=== PATIENT | female | born 1975 | race African-American/Black ===

== ENCOUNTER → 2020-06-02 08:13 | Outpatient (BNVA) | payer OTHER, SELFPAY | PROVIDERS: PCP Nurse Practitioner; Referring Provider Nurse Practitioner; Visit Provider Dietitian, Registered | DX: Z76.89 Persons encountering health services in other specified circumstances (principal) ==

== ENCOUNTER → 2021-01-24 14:17 | Outpatient (BNVA) | payer OTHER, SELFPAY | PROVIDERS: PCP Nurse Practitioner; Visit Provider Physician Assistant | DX: E66.01 Morbid (severe) obesity due to excess calories (principal); Z68.43 Body mass index [BMI] 50.0-59.9, adult | CPT/HCPCS: 99212 ==

== ENCOUNTER 2021-02-06 12:40 | Outpatient (REF) | payer OTHER, SELFPAY ==
--- NOTE | ~2021-02-06 | XR_ITS ---
EXAMINATION: XR CHEST CLINICAL INFORMATION: Obesity. COMPARISON: Chest radiograph dated 01/25/2020. TECHNIQUE: 2 views of the chest were obtained. FINDINGS: Minimal scarring redemonstrated within the left lung base. The cardiomediastinal silhouette is normal in size. There is no pleural effusion or pneumothorax. No acute osseous abnormality. XR/XR chest 2V IMPRESSION: No acute cardiopulmonary findings.
[2021-02-06 13:18] LABS: MANUAL DIFF FLAG NO
[2021-02-06 13:22] LABS: Basophils Percent Auto 0.4 % (0-2); Eosinophils Absolute Auto 0.2 X10*3/uL (0.0-0.4); Eosinophils Percent Auto 3.3 % (0-4); Hematocrit 35.4 % (37-47); Hemoglobin 11.1 g/dl (12.0-16.0); Imm Gran Abs Auto 0.01 X10*3/uL (0.00-0.03); Imm Gran Pct Auto 0.2 % (0.0-0.4); Lymphocytes Absolute Auto 1.3 X10*3/uL (1.2-4.9); Lymphocytes Percent Auto 27.4 % (20-40); Mean Corpuscular HGB Conc 31.4 g/dl (31.0-35.0); Mean Corpuscular Hemoglobin 28.2 pg (27.0-33.0); Mean Corpuscular Volume 90.1 fL (80-98); Mean Platelet Volume 9.5 fL (9.4-12.3); Monocytes Absolute Auto 0.4 X10*3/uL (0.1-1.2); Monocytes Percent Auto 8.4 % (2-11); Neutrophils Percent Auto 60.3 % (45-73); Platelet Count 394 X10*3/uL (160-400); Red Blood Count 3.93 X10*6/uL (4.20-5.50); Red Cell Distribution Width 14.8 % (11.0-16.0); White Blood Count 4.9 X10*3/uL (4.8-10.8)
[2021-02-06 13:40] LABS: Estimated Average Glucose 126 mg/dL
[2021-02-06 13:52] LABS: Alanine Aminotransferase 11 U/L (0-31); Albumin Level 4.2 g/dL (3.5-5.0); Alkaline Phosphatase 77 U/L (39-117); Anion Gap 14 (12-20); Aspartate Amino Transferase 13 U/L (5-31); Bilirubin Total 0.3 mg/dL (0.0-1.0); Blood Urea Nitrogen 19 mg/dL (9-16); C Reactive Protein 1.46 mg/dL (< or = 0.50); Calcium 9.4 mg/dL (8.4-10.2); Carbon Dioxide 34 mmol/L (22-29); Chloride 102 mmol/L (96-108); Cholesterol 143 mg/dL; Estimated Glomerular Filt Rate > 60; Glucose Random 98 mg/dL (60-115); HDL Cholesterol 33 mg/dL; Iron 50 mcg/dL (30-160); LDL Cholesterol Calculated 97 mg/dl; Percent Iron Saturation 15 % (15-50); Potassium 3.9 mmol/L (3.3-5.1); Sodium 146 mmol/L (135-145); Total Iron Binding Capacity 329 mcg/dL (228-428); Total Protein 7.7 g/dL (6.5-8.0); Triglycerides 65 mg/dL; Unsaturated Iron Binding 279 ug/dL
[2021-02-06 14:13] LABS: Ferritin 49 ng/mL (10-250); TSH reflex Free T4 0.51 uIU/mL (0.32-4.0); Vitamin D 25-OH Total 19.7 ng/mL (>30)
[2021-02-06 14:24] LABS: Folate 12.8 ng/mL (> or = 4.0); Vitamin B12 486 pg/mL (200-900)
[2021-02-07 09:41] LABS: Insulin Level Total 21.7 uIU/mL
[2021-02-07 13:51] LABS: Calcium (PTHI) 9.1 mg/dL (8.6-10.2); PTHI 38 pg/mL (14-64)
[2021-02-07 13:51] LABS: H Pylori Breath Test DETECTED (NOT DETECTED)
[2021-02-09 15:47] LABS: Zinc 76 mcg/dL (60-130)
[2021-02-10 12:06] LABS: Vitamin B1 8 nmol/L (8-30)
[2021-02-11 20:22] LABS: Vitamin A 40 mcg/dL (38-98)
== END 2021-02-06 12:41 | disposition home or self-care (01) ==
LOC: HO.XRAY 12:40
PROVIDERS: Visit Provider Physician Assistant
DX: E66.01 Morbid (severe) obesity due to excess calories (principal)
CPT/HCPCS: 36415; 71046; 80053; 80061; 82306; 82607; 82728; 82746; 83013; 83036; 83525; 83540; 83970; 84425; 84443; 84590; 84630; 85025; 86140; 99211

== ENCOUNTER → 2021-02-14 14:53 | Outpatient (REF) | payer OTHER, SELFPAY ==
--- NOTE | 2021-02-14 15:53 | ECG_ITS ---
Test Reason : MORBID OBESITY Blood Pressure : / mmHG Vent. Rate : 087 BPM Atrial Rate : 087 BPM P-R Int : 212 ms QRS Dur : 078 ms QT Int : 396 ms P-R-T Axes : 054 079 051 degrees QTc Int : 476 ms Sinus rhythm with 1st degree A-V block Otherwise normal ECG When compared with ECG of 25-JAN-2020 09:43, No significant change was found Referred By: Anette Jackson Electronically Signed By:TOM HENDRICKSON MD
== END ==
LOC: HO.CARD 14:53
PROVIDERS: PCP Nurse Practitioner; Visit Provider Physician Assistant
DX: E66.01 Morbid (severe) obesity due to excess calories (principal); Z68.43 Body mass index [BMI] 50.0-59.9, adult; Z71.3 Dietary counseling and surveillance
CPT/HCPCS: 93005; 99212

== ENCOUNTER → 2021-03-06 08:05 | Outpatient (BNVA) | payer OTHER, SELFPAY | PROVIDERS: PCP Nurse Practitioner; Visit Provider Dietitian, Registered | DX: E66.01 Morbid (severe) obesity due to excess calories (principal) | CPT/HCPCS: 97802 ==

== ENCOUNTER → 2021-03-14 14:02 | Outpatient (BNVA) | payer OTHER, SELFPAY | PROVIDERS: PCP Nurse Practitioner; Referring Provider Nurse Practitioner; Visit Provider Physician Assistant | DX: A04.8 Other specified bacterial intestinal infections (principal) | CPT/HCPCS: 99211 ==

== ENCOUNTER 2021-03-16 14:34 | Outpatient (REF) | payer OTHER, SELFPAY ==
[2021-03-17 12:31] LABS: H Pylori Breath Test NOT DETECTED (NOT DETECTED)
== END 2021-03-16 14:35 | disposition home or self-care (01) ==
LOC: HO.LNP 14:34
PROVIDERS: Visit Provider Surgery
DX: Z01.818 Encounter for other preprocedural examination (principal)
CPT/HCPCS: 83013

== ENCOUNTER → 2021-04-03 08:16 | Outpatient (BNVA) | payer OTHER, SELFPAY | PROVIDERS: PCP Nurse Practitioner; Visit Provider Dietitian, Registered ==